=== PATIENT | male | born 1950 | race Caucasian/White ===

== ENCOUNTER → 2020-10-13 | Outpatient (CLI) | payer MEDICARE ==
[~2020-10-13] MED LIST: ASCO100018 PO; ASPI81TA45 PO; ATOR40TA78 PO; CHOL20009 PO; FLUT9.9S NAS; LATA7.5D EACHEYE; MAGN100T3 PO; METO50TA4 PO; TRIA1TAB3 PO; VITA1CAP PO
[2020-10-13 10:26] LABS: BASOPHILS % (AUTO) 1 % (0-1); EOSINOPHILS % (AUTO) 2 % (1-7); LYMPHOCYTES % (AUTO) 34 % (22-44); MEAN CORPUSCULAR HEMOGLOBIN 33.3 pg (27.5-34.5); MEAN PLATELET VOLUME 8.1 fL (7.4-10.4); MONOCYTES % (AUTO) 8 % (2-9); NEUTROPHILS % (AUTO) 56 % (42-75); PLATELET COUNT 187 x10^3/uL (130-400); RED CELL DISTRIBUTION WIDTH 13.7 % (9.4-14.8)
[2020-10-13 10:35] LABS: ALANINE AMINOTRANSFERASE 55 U/L (12-78); ALBUMIN 3.9 g/dL (3.4-5.0); ANION GAP 6 mmol/L (5-15); CALCIUM 9.6 mg/dL (8.5-10.1); CHLORIDE 107 mmol/L (98-107)
[2020-10-13 10:36] LABS: INTERNATIONAL NORMALIZED RATIO 1.01 (0.93-1.1); PROTHROMBIN TIME 10.8 Seconds (9.6-11.5)
[2020-10-13 10:37] LABS: ALKALINE PHOSPHATASE 46 U/L (45-117); CREATININE 0.93 mg/dL (0.7-1.3); TOTAL PROTEIN 7.1 g/dL (6.4-8.2)
== END | disposition home or self-care (01) ==
LOC: STAR 08:57
PROVIDERS: ATTEND Orthopaedic Surgery
DX: Z01.812 Encounter for preprocedural laboratory examination (principal); Z20.822 Contact with and (suspected) exposure to COVID-19; M16.11 Unilateral primary osteoarthritis, right hip; Z79.01 Long term (current) use of anticoagulants
CPT/HCPCS: 36415; 80053; 83036; 85025; 85610; 85730; 87081; 93005; U0003; U0005

== ENCOUNTER 2020-10-17 07:27 | Day surgery (SDC) | payer MEDICARE ==
[~2020-10-17] VITALS: Ht 177.8 cm; Wt 87.7 kg
[~2020-10-17 07:27] MED LIST changes: +ACETAMINOPHEN 650 MG/20.3 ML UDC PO PRN; +BISACODYL 10 MG SUPP PR PRN; +CEFAZOLIN PMX 2GM/100ML ONE; +CEFAZOLIN PMX 2GM/50ML 50 ML IVPB SCH; +DEXAMETHASONE 4 MG/ML, 1ML ONE; +DIPHENHYDRAMINE 25 MG CAPSULE PO PRN; +FENTANYL PF 100 MCG/2ML ONE; +HYDROcodone/APAP 5/325 TABLET PO PRN; +MAGNESIUM HYDROXIDE 8%, 30ML UDC PO PRN; +MIDAZOLAM 1 MG/ML, 5ML ONE; +NS + 20MEQ KCL 1,000 ML IV SCH; +ONDANSETRON 2MG/ML, 2ML IV PRN; +ONDANSETRON 4 MG TABLET PO PRN; +OXYcodone IR 5MG TABLET PO PRN; +PROPOFOL 10 MG/ML, 100ML IV ONE; +SENNA/DOCUSATE TABLET PO PRN; +TRANEXAMIC ACID 100 MG/ML, 10ML ONE; +ZOLPIDEM 5MG TABLET PO PRN
[2020-10-17] MEDS ORDERED: LACTATED RINGERS 1,000 ML IV SCH (08:00)
[2020-10-17] MEDS ORDERED: ACETAMINOPHEN 325 MG TABLET PO PRN (08:00)
[2020-10-17] MEDS ORDERED: ONDANSETRON 2MG/ML, 2ML IVPush PRN (08:00)
[2020-10-17] MEDS ORDERED: hydrALAzine 20 MG/ML, 1ML IV PRN (08:00)
[2020-10-17] MEDS ORDERED: CHLORHEXIDINE 15 ML UDC PO ONE (08:00)
[2020-10-17] MEDS ORDERED: LABETALOL 5MG/ML, 20ML IV PRN (08:00)
[2020-10-17] MEDS ORDERED: HYDROmorphone 1 MG/ML, 1ML INJ IVPush PRN (08:00)
[2020-10-17] MEDS ORDERED: PROMETHAZINE 25 MG/ML, 1ML IVPush PRN (08:00)
[2020-10-17] MEDS ORDERED: OXYcodone 5 MG/5 ML ORAL.SOL UDC PO PRN (08:00)
[2020-10-17] MEDS ORDERED: MEPERIDINE/PF 25MG/0.5ML IVPush PRN (08:00)
[2020-10-17] MEDS ORDERED: GABAPENTIN 300 MG CAPSULE PO ONE (08:30)
[2020-10-17] MEDS ORDERED: DOCUSATE 100 MG CAPSULE PO SCH (09:00)
[2020-10-17] MEDS ORDERED: METOPROLOL SUCCINATE 50 MG TAB.ER.24H PO SCH (09:00)
[2020-10-17] MEDS ORDERED: TRIAMTERENE-HCTZ 37.5/25 MG TABLET PO SCH (09:00)
[2020-10-17] MEDS ORDERED: FENTANYL PF 100 MCG/2ML ONE (10:25)
[2020-10-17] MEDS ORDERED: OXYcodone 5 MG/5 ML ORAL.SOL UDC ONE (10:26)
[2020-10-17] MEDS: FENTANYL PF 100 MCG/2ML IV PRN ×2 (10:31→10:55)
[2020-10-17] MEDS ORDERED: METHOCARBAMOL 1,000 MG in DEXTROSE 5% 100 ML IV STA (10:34)
[2020-10-17] MEDS ORDERED: MEPERIDINE/PF 25MG/ML,1ML ONE (11:06)
[2020-10-17] MEDS ORDERED: ASPIRIN 81 MG TABLET EC PO SCH (18:00)
[2020-10-18] MEDS ORDERED: DEXAMETHASONE 4 MG/ML, 1ML IVPush SCH (06:00)
== END 2020-10-17 13:45 | disposition home or self-care (01) ==
LOC: OUT 07:27
PROVIDERS: ATTEND Orthopaedic Surgery
DX: M16.11 Unilateral primary osteoarthritis, right hip (principal); M25.551 Pain in right hip; I10 Essential (primary) hypertension; G47.33 Obstructive sleep apnea (adult) (pediatric); Z88.8 Allergy status to other drugs, medicaments and biological substances; Z79.899 Other long term (current) drug therapy; Z79.82 Long term (current) use of aspirin; Z86.73 Personal history of transient ischemic attack (TIA), and cerebral infarction without residual deficits; Z98.890 Other specified postprocedural states; Z87.891 Personal history of nicotine dependence; Z72.89 Other problems related to lifestyle
CPT/HCPCS: 27130; 72170; 73501; 97162; 97165; C1713; C1776; J0171; J0690; J1100; J1170; J2175; J2250; J2704; J2795; J2800; J3010; J3370; J7120; 76000